=== PATIENT | male | born 1995 | race Caucasian/White ===

== ENCOUNTER 2017-01-20 13:29 | Emergency (ER) | payer BC ==
[2017-01-20] MEDS ORDERED: Sodium Chloride 0.9% 1000 ML 1,000 ML IV STA (14:14)
[2017-01-20] MEDS ORDERED: BENADRYL 50 MG/ML IV ONE (14:14)
[2017-01-20] MEDS ORDERED: MORPHINE SULFATE 10 MG/ML IV ONE ×2 (14:14→14:43)
[2017-01-20] MEDS ORDERED: Sodium Chloride 0.9% 1000 ML 1,000 ML ONE (14:18)
[2017-01-20] MEDS ORDERED: MORPHINE SULFATE 10 MG/ML ONE ×2 (14:18→14:46)
[2017-01-20] MEDS ORDERED: BENADRYL 50 MG/ML ONE (14:18)
--- NOTE | 2017-01-20 14:19 | ERPHSYRPT ---
- History of Present Illness Time Seen by Provider: 01/20/17 14:11 Historian: patient, family () Patient Subjective Stated Complaint: pt states he began having right lower back pain that started at 0100. pt states pain radiates to right lower abdomen. Triage Nursing Assessment: pt pink, warm,,dry. tender in right lower quad. pt moaning. pt afebrile. Physician History: CC: right abd/flank pain Hx: 22 y/o patient of Dr Curry was at [employer] [place] [employer] and had sudden onset right flank and abdominal pain at 1PM today. He has cold sweats, nausea, urge to urinate but could not. No hematuria. No hx of kidney stone disease. Pain severe. Quality: sharpness, stabbing Severity of Pain-Max: severe Severity of Pain-Current: severe Allergies/Adverse Reactions: fluticasone propionate [From Advair Diskus] Allergy (Severe, Verified 01/20/17 14:09) Shortness of Breath phenytoin sodium [From Dilantin] Allergy (Severe, Verified 01/20/17 14:09) Rash phenytoin sodium extended [From Dilantin] Allergy (Severe, Verified 01/20/17 14: 09) Rash salmeterol xinafoate [From Advair Diskus] Allergy (Severe, Verified 01/20/17 14: 09) Shortness of Breath Home Medications: Cetirizine HCl [Zyrtec] 10 mg PO DAILY 01/20/17 [History] Ranitidine HCl [Zantac 75] 75 mg PO DAILY 01/20/17 [History] Hx Tetanus, Diphtheria Vaccination/Date Given: Yes (unknown) Hx Influenza Vaccination/Date Given: No Hx Pneumococcal Vaccination/Date Given: No Immunizations Up to Date: Yes - Review of Systems Constitutional: No Fever, No Chills Eyes: No Symptoms Ears, Nose, & Throat: No Symptoms Respiratory: No Cough, No Dyspnea Cardiac: No Chest Pain Abdominal/Gastrointestinal: Abdominal Pain, Nausea, No Vomiting, No Diarrhea Genitourinary Symptoms: Hesitancy (right flank), No Dysuria, No Testicle Pain Neurological: No Focal Weakness, No Headache, No Parasthesia All Other Systems: Reviewed and Negative - Past Medical History Pertinent Past Medical History: Yes Neurological History: Seizures Other Medical History: FEBRILE SEIZURE - Past Surgical History Past Surgical History: Yes Musculoskeletal: Orthopedic Surgery Other Surgical History: orthopedic - Social History Smoking Status: Former smoker How long have you smoked: 1 Exposure to second hand smoke: No Drug Use: none Patient Lives Alone: No - Nursing Vital Signs Nursing Vital Signs: Initial Vital Signs Temperature 97.6 F 01/20/17 14:03 Pulse Rate 73 01/20/17 14:03 Respiratory Rate 18 01/20/17 14:03 Blood Pressure 141/82 01/20/17 14:03 O2 Sat by Pulse Oximetry 100 01/20/17 14:03 Pain Scale Pain Intensity 5 - Physical Exam General Appearance: alert, other (uncomfortable appearing) Eye Exam: PERRL/EOMI Ears, Nose, Throat Exam: normal ENT inspection, moist mucous membranes Neck Exam: normal inspection, non-tender, supple Respiratory Exam: normal breath sounds, lungs clear Cardiovascular Exam: regular rate/rhythm Gastrointestinal/Abdomen Exam: soft, tenderness (severe right sided tenderness) , No hernia Male Genitalia Exam: normal genitalia, No testicular tenderness Back Exam: normal inspection, CVA tenderness (right) Extremity Exam: normal inspection, normal range of motion Neurologic Exam: alert, oriented x 3, cooperative, sensation nml, No motor deficits Skin Exam: pale SpO2 Interpretation: normal SpO2: 100 Oxygen Delivery: Room Air - Course Nursing assessment & vital signs reviewed: Yes - CT Exams abd/pelvis CT Interpretation: Tele-radiologist Report (2X1mm right UVJ stone) Ordered Tests: Active Orders 24 hr Category Date Time Status Clean Catch Urine Specimen STAT Care 01/20/17 14:14 Active IV Insertion STAT Care 01/20/17 14:14 Active NPO (ED) STAT Care 01/20/17 14:14 Active ABDOMEN AND PELVIS W/0 CONTRAS [CT] Stat Exams 01/20/17 14:15 Taken CBC W DIFF Stat Lab 01/20/17 14:24 Completed CMP Stat Lab 01/20/17 14:24 Completed CULTURE,URINE Stat Lab 01/20/17 15:30 Received LIPASE Stat Lab 01/20/17 14:24 Completed UA W/ MICROSCOPIC Stat Lab 01/20/17 15:30 Completed Medication Summary Discontinued Medications Generic Name Dose Route Start Last Admin Trade Name Freq PRN Reason Stop Dose Admin Diphenhydramine HCl 50 mg 01/20/17 14:14 01/20/17 14:20 Benadryl 50 Mg/Ml IV 01/20/17 14:15 50 mg STAT ONE Administration Diphenhydramine HCl Confirm 01/20/17 14:18 Benadryl 50 Mg/Ml Administered 01/20/17 14:19 Dose 50 mg .ROUTE .STK-MED ONE Sodium Chloride 1,000 mls @ 999 mls/hr 01/20/17 14:14 01/20/17 14:19 Sodium Chloride 0.9% 1000 Ml IV 01/20/17 15:14 999 mls/hr .Q1H1M STA Administration Sodium Chloride Confirm 01/20/17 14:18 Sodium Chloride 0.9% 1000 Ml Administered 01/20/17 14:19 Dose 1,000 mls @ ud .ROUTE .STK-MED ONE Ketorolac Tromethamine 30 mg 01/20/17 15:22 01/20/17 15:30 Toradol 30 Mg Injection IV 01/20/17 15:23 30 mg STAT ONE Administration Ketorolac Tromethamine Confirm 01/20/17 15:29 Toradol 30 Mg Injection Administered 01/20/17 15:30 Dose 30 mg .ROUTE .STK-MED ONE Morphine Sulfate 10 mg 01/20/17 14:14 01/20/17 14:21 Morphine Sulfate 10 Mg/Ml IV 01/20/17 14:15 10 mg STAT ONE Administration Morphine Sulfate Confirm 01/20/17 14:18 Morphine Sulfate 10 Mg/Ml Administered 01/20/17 14:19 Dose 10 mg .ROUTE .STK-MED ONE Morphine Sulfate 5 mg 01/20/17 14:43 01/20/17 14:48 Morphine Sulfate 10 Mg/Ml IV 01/20/17 14:44 5 mg STAT ONE Administration Morphine Sulfate Confirm 01/20/17 14:46 Morphine Sulfate 10 Mg/Ml Administered 01/20/17 14:47 Dose 10 mg .ROUTE .STK-MED ONE Lab/Rad Data: Laboratory Result Diagrams 01/20/17 14:24 01/20/17 14:24 Laboratory Results 01/20/17 01/20/17 01/20/17 Range/Units 15:30 14:24 14:24 WBC 11.2 H (4.0-10.5) K/mm3 RBC 5.61 H (4.1-5.6) M/mm3 Hgb 16.1 (12.5-18.0) gm/dl Hct 46.6 (42-50) % MCV 83.1 (78-100) fl MCH 28.6 (26-32) pg MCHC 34.5 (32-36) g/dl RDW 12.5 (11.5-14.0) % Plt Count 291 (150-450) K/mm3 MPV 10.2 H (6-9.5) fl Gran % 66.7 H (36.0-66.0) % Lymphocytes % 25.6 (24.0-44.0) % Monocytes % 5.9 (0.0-12.0) % Eosinophils % 1.5 (0.00-5.0) % Basophils % 0.3 (0.0-0.4) % Basophils # 0.03 (0-0.4) Sodium 141 (136-145) mEq/L Potassium 3.2 L (3.5-5.1) mEq/L Chloride 104 (98-107) mEq/L Carbon Dioxide 24.1 (21-32) mEq/L Anion Gap 16.0 H (5-15) MEQ/L BUN 16 (9-20) mg/dL Creatinine 1.18 (0.55-1.30) mg/dl Estimated GFR > 60 ML/MIN Glucose 139 H (70-110) MG/DL Calcium 9.9 (8.5-10.1) mg/dL Total Bilirubin 0.60 (0.2-1.0) mg/dL AST 23 (15-37) U/L ALT 51 (12-78) U/L Alkaline Phosphatase 136 H (46-116) U/L Serum Total Protein 7.8 (6.4-8.2) gm/dL Albumin 4.4 (3.4-5.0) g/dL Lipase 189 (73-393) U/L Ur Collection Type VOID Urine Color YELLOW (YELLOW) Urine Appearance CLOUDY (CLEAR) Urine pH 7.0 (5-6) Ur Specific [place] 1.020 (1.005-1.025) Urine Protein NEGATIVE (Negative) Urine Ketones NEGATIVE (NEGATIVE) Urine Blood 250 (0-5) Henry/ul Urine Nitrite NEGATIVE (NEGATIVE) Urine Bilirubin NEGATIVE (NEGATIVE) Urine Urobilinogen NORMAL (0-1) mg/dL Ur Leukocyte Esterase TRACE (NEGATIVE) Urine Microscopic RBC >100 (0-2) /HPF Urine Microscopic WBC 0-2 (0-5) /HPF Ur Epithelial Cells FEW (FEW) /HPF Urine Bacteria RARE (NEGATIVE) /HPF Urine Mucus MODERATE (NEGATIVE) /HPF Urine Glucose NEGATIVE (NEGATIVE) mg/dL Specimen Received 01/20/17 1555 - Progress Progress Note: 01/20/17 14:[address] to evaluate for renal stone disease or appendicitis. 01/20/17 16:09 Improved symptoms. Will release with kidney stone instructions. Counseled pt/family regarding: lab results, diagnosis, need for follow-up, rad results - Departure Time of Disposition: 16:09 Departure Disposition: Home Clinical Impression: right UVJ stone, Renal colic on right side Condition: Stable Critical Care Time: No Referrals: JAC CURRY MD [Primary Care Provider] - Instructions: Kidney Stones Additional Instructions: Return for fever, uncontrolled pain, recurrent vomiting or concerns. Strain urine for stone to collect. No driving or operating machinery today or while taking norco. Call Dr Curry Sunday for follow up next week. Prescriptions: Hydrocodone/APAP 10/325 mg [[place] 10/325 MG Tablet] 1 tab PO Q6H PRN PRN # 15 tablet PRN Reason: Pain Ibuprofen 600 mg PO Q6H PRN PRN #24 tablet PRN Reason: Pain
[2017-01-20 14:36] LABS: BASOPHIL % 0.3 % (0.0-0.4); Eosinophil % 1.5 % (0.00-5.0); Granulocytes % 66.7 % (36.0-66.0); Lymphocytes % 25.6 % (24.0-44.0); Mean Cell Volume 83.1 fl (78-100); Mean Platelet Volume 10.2 fl (6-9.5); Monocytes % 5.9 % (0.0-12.0); Platelet Count 291 K/mm3 (150-450); Red Blood Count 5.61 M/mm3 (4.1-5.6); Red Cell Distribution Width 12.5 % (11.5-14.0); White Blood Count 11.2 K/mm3 (4.0-10.5)
[2017-01-20 14:37] LABS: Mean Corpuscular Hemoglobin 28.6 pg (26-32)
[2017-01-20 14:49] LABS: ALBUMIN 4.4 g/dL (3.4-5.0); ALKALINE PHOSPHATASE 136 U/L (46-116); BLOOD UREA NITROGEN 16 mg/dL (9-20); CHLORIDE 104 mEq/L (98-107); Carbon Dioxide 24.1 mEq/L (21-32); Glucose 139 MG/DL (70-110); LIPASE 189 U/L (73-393); Potassium 3.2 mEq/L (3.5-5.1); SGOT/AST 23 U/L (15-37); SGPT/ALT 51 U/L (12-78); SODIUM 141 mEq/L (136-145); Total Protein 7.8 gm/dL (6.4-8.2)
[2017-01-20] MEDS ORDERED: TORAdol 30 mg Injection IV ONE (15:22)
[2017-01-20] MEDS ORDERED: TORAdol 30 mg Injection ONE (15:29)
[2017-01-20 15:35] VITALS: BP 154/77; PULSE 82
[2017-01-20 15:57] LABS: Bilirubin NEGATIVE (NEGATIVE); Blood 250 Ery/ul (0-5); COMPLETE URINE MICROSCOPIC? YES; Collection Type VOID; Glucose NEGATIVE (NEGATIVE); Leukocyte Esterase TRACE (NEGATIVE)
[2017-01-20 15:58] LABS: ADD URINE CULTURE? YES (NO); Bacteria RARE /HPF (NEGATIVE); Epithelial Cells FEW /HPF (FEW); Mucus MODERATE /HPF (NEGATIVE); WBC 0-2 /HPF (0-5)
[2017-01-20 16:12] VITALS: O2SAT 100
--- NOTE | 2017-01-20 19:27 | XRAY ---
Indication: Right lower quadrant and right flank pain. Multiple contiguous axial images obtained through the abdomen and pelvis without contrast as ordered. Comparison: January 05, 2016. Lung bases clear. Heart is not enlarged. There is now a punctate right UVJ calculus. Proximal right ureter slightly prominent with mild hydronephrosis consistent with partial obstructive uropathy. Additional punctate right renal calculus. Noncontrasted stomach and bowel loops appear nonobstructed. Normal appendix. No free fluid/air. Again splenomegaly today measuring 13.3 cm in greatest axial dimension. Stable subcentimeter mesenteric nodes throughout, possible adenitis. No pathologic lymphadenopathy. Remaining liver, gallbladder, pancreas, adrenal glands, kidneys, ureters, bladder, and aorta appear unremarkable for noncontrast exam. Osseous structures intact. Impression: 1. Punctate right UVJ calculus producing partial obstruction. Additional right renal microcalculus. 2. Again scattered small mesenteric nodes, possible mesenteric adenitis. 3. Incidental splenomegaly. Comment: Preliminary interpretation was made by [facility]. No critical discrepancy. CTDI 23.24
== END 2017-01-20 16:25 | disposition home or self-care (01) ==
LOC: ED 13:29
DX: N20.1 Calculus of ureter (principal); N23 Unspecified renal colic
CPT/HCPCS: 36000; 36415; 74176; 80053; 81000; 83690; 85025; 87086; 96360; 96361; 96374; 96375; 96376; 99284; J1200; J1885; J2270

== ENCOUNTER 2021-04-04 09:07 | Emergency (ER) | payer OTHER ==
--- NOTE | 2021-04-04 09:41 | ERPHSYRPT ---
- History of Present Illness Time Seen by Provider: 04/04/21 09:25 Source: patient Exam Limitations: no limitations Patient Subjective Stated Complaint: PT states "It started last night, it feels like I have been kicked in the chest and then I had a friend take my blood pr essure at home and it was high." Triage Nursing Assessment: Pt presented alert and oriented X3, skin pwd pt ambulates with an extremely slow gait, holding onto his chest. Pt slightly tachypneic, able to speak in clear full setences. Physician History: Patient is a 26-year-old male presents to our ED with complaints of chest pain. Symptoms started last night. Patient states he feels like he was kicked in the chest. Mild shortness of breath. Symptoms continued on into today. Patient decided to come in for evaluation. Subjective fever last night. Patient currently afebrile. Slightly tachycardic. No nausea vomiting or diaphoresis. No diarrhea. No rash. Patient is otherwise healthy. Symptoms are mild to moderate in intensity. No specific worsening improving factors. Patient voices no other complaints or concerns at this time. Timing/Duration: yesterday Severity: moderate Modifying Factors: Improves With: nothing Associated Symptoms: other (Subjective fever.) Allergies/Adverse Reactions: fluticasone propionate [From Advair Diskus] Allergy (Severe, Verified 01/20/17 14:09) Shortness of Breath phenytoin sodium [From Dilantin] Allergy (Severe, Verified 01/20/17 14:09) Rash phenytoin sodium extended [From Dilantin] Allergy (Severe, Verified 01/20/17 14:09) Rash salmeterol xinafoate [From Advair Diskus] Allergy (Severe, Verified 01/20/17 14:09) Shortness of Breath Home Medications: Loratadine 10 mg [Claritin 10 mg] 10 mg PO DAILY 04/04/21 [History] Hx Tetanus, Diphtheria Vaccination/Date Given: No Hx Influenza Vaccination/Date Given: No Hx Pneumococcal Vaccination/Date Given: No Immunizations Up to Date: Yes Travel Risk - International Travel Have you traveled outside of the country in past 3 weeks: No - Coronavirus Screening Are you exhibiting any of the following symptoms?: No Close contact with a COVID-19 positive Pt in past 14-21 Days: No - Vaccine Status Have you recieved a Covid-19 vaccination: No - Review of Systems Constitutional: No Symptoms, No Fever, No Chills Eyes: No Symptoms Ears, Nose, & Throat: No Symptoms Respiratory: No Symptoms, No Cough, No Dyspnea Cardiac: No Symptoms, No Chest Pain, No Edema, No Syncope Abdominal/Gastrointestinal: No Symptoms, No Abdominal Pain, No Nausea, No Vomiti ng, No Diarrhea Genitourinary Symptoms: No Symptoms, No Dysuria Musculoskeletal: No Symptoms, No Back Pain, No Neck Pain Skin: No Symptoms, No Rash Neurological: No Symptoms, No Dizziness, No Focal Weakness, No Sensory Changes Psychological: No Symptoms Endocrine: No Symptoms Hematologic/Lymphatic: No Symptoms Immunological/Allergic: No Symptoms All Other Systems: Reviewed and Negative - Past Medical History Pertinent Past Medical History: Yes Neurological History: Seizures Other Medical History: FEBRILE SEIZURE - Past Surgical History Past Surgical History: Yes Musculoskeletal: Orthopedic Surgery Other Surgical History: orthopedic - Social History Smoking Status: Former smoker How long have you smoked: 1 Exposure to second hand smoke: Yes Drug Use: none Patient Lives Alone: No - Nursing Vital Signs Nursing Vital Signs: Initial Vital Signs Temperature 98.7 F 04/04/21 09:18 Pulse Rate 107 H 04/04/21 09:18 Respiratory Rate 22 04/04/21 09:18 Blood Pressure 128/91 04/04/21 09:18 O2 Sat by Pulse Oximetry 98 04/04/21 09:18 Pain Scale Pain Intensity 8 - Physical Exam General Appearance: no apparent distress, alert Eye Exam: PERRL/EOMI, eyes nml inspection Ears, Nose, Throat Exam: normal ENT inspection, TMs normal, pharynx normal, moist mucous membranes Neck Exam: normal inspection, non-tender, supple, full range of motion Respiratory Exam: normal breath sounds, lungs clear, airway intact, No chest tenderness, No respiratory distress Cardiovascular Exam: regular rate/rhythm, normal heart sounds, normal peripheral pulses Gastrointestinal/Abdomen Exam: soft, normal bowel sounds, No tenderness, No mass Back Exam: normal inspection, normal range of motion, No CVA tenderness, No vertebral tenderness Extremity Exam: normal inspection, normal range of motion, pelvis stable Neurologic Exam: alert, oriented x 3, cooperative, normal mood/affect, nml cerebellar function, nml station & gait, sensation nml, No motor deficits Skin Exam: normal color, warm, dry, No rash Lymphatic Exam: No adenopathy SpO2 Interpretation: normal SpO2: 98 O2 Delivery: Room Air - Course Nursing assessment & vital signs reviewed: Yes EKG Interpreted by Me: RATE (103), Sinus Rhythm, Sinus Tach, NORMAL AXIS, NORMAL INTERVALS - Radiology Exams Chest X-ray Interpretation: Teleradiologist Report (Chest remains clear. Heart not enlarged. Bony thorax intact again with minimal scoliosis. No new acute findings.) - CT Exams Chest CT Interpretation: Tele-radiologist Report (Negative for PE. Lungs demonstrate minimal patchy airspace disease in the superior segment of the left lower lobe. Remaining lungs are clear. Bony thorax intact. Limited upper abdomen unremarkable.) Ordered Tests: Active Orders 24 hr Category Date Time Status Marble Cleaner STAT Care 04/04/21 09:33 Active EKG-ER Only STAT Care 04/04/21 09:32 Active IV Insertion STAT Care 04/04/21 09:32 Active Pulse Oximetry (ED) STAT Care 04/04/21 09:32 Active CHEST 1 VIEW (PORTABLE) Stat Exams 04/04/21 09:33 Completed CHEST WITH CONTRAST [CT] Stat Exams 04/04/21 10:45 Completed CBC W DIFF Stat Lab 04/04/21 09:32 Completed CMP Stat Lab 04/04/21 09:20 Completed D-DIMER QUANTITATIVE Stat Lab 04/04/21 09:20 Completed INFLUENZA A+B DEEP Stat Lab 04/04/21 09:50 Completed UA W/RFX UR CULTURE Stat Lab 04/04/21 10:29 Completed Medication Summary Generic Name Dose Route Start Last Admin Trade Name Freq PRN Reason Stop Dose Admin Sodium Chloride 1,000 mls @ 100 mls/hr 04/04/21 09:45 04/04/21 09:57 Sodium Chloride 0.9% 1000 Ml IV 05/04/21 09:44 100 mls/hr .Q10H KRISTA Administration Discontinued Medications Generic Name Dose Route Start Last Admin Trade Name Freq PRN Reason Stop Dose Admin Ceftriaxone Sodium/Dextrose 2 g in 50 mls @ 100 mls/hr 04/04/21 11:32 04/04/21 12:48 Rocephin 2 Gm-D5w 50ml Bag IV 04/04/21 12:01 Infused STAT STA Infusion Azithromycin 500 mg in 250 mls @ 250 mls/hr 04/04/21 11:32 04/04/21 12:49 Zithromax 500 Mg/ 250 Ml Nacl Premix IV 04/04/21 12:31 Infused STAT STA Infusion Azithromycin Confirm 04/04/21 11:35 Zithromax 500 Mg/ 250 Ml Nacl Premix Administered 04/04/21 11:36 Dose 500 mg in 250 mls @ ud IV .STK-MED ONE Ceftriaxone Sodium/Dextrose Confirm 04/04/21 11:35 Rocephin 2 Gm-D5w 50ml Bag Administered 04/04/21 11:36 Dose 2 g in 50 mls @ ud IV .STK-MED ONE Lab/Rad Data: Laboratory Result Diagrams 04/04/21 09:32 04/04/21 09:20 Laboratory Results 04/04/21 04/04/21 04/04/21 Range/Units 10:29 09:50 09:32 WBC 6.4 (4.0-10.5) K/mm3 RBC 5.74 H (4.1-5.6) M/mm3 Hgb 16.2 (12.5-18.0) gm/dl Hct 48.1 (42-50) % MCV 83.8 (78-100) fl MCH 28.2 (26-32) pg MCHC 33.7 (32-36) g/dl RDW 12.6 (11.5-14.0) % Plt Count 253 (150-450) K/mm3 MPV 10.3 (7.5-11.0) fl Gran % 62.0 (36.0-66.0) % Eos # (Auto) 0.02 (0-0.5) Absolute Lymphs (auto) 1.35 (1.0-4.6) Absolute Monos (auto) 1.04 (0.0-1.3) Lymphocytes % 21.1 L (24.0-44.0) % Monocytes % 16.3 H (0.0-12.0) % Eosinophils % 0.3 (0.00-5.0) % Basophils % 0.3 (0.0-0.4) % Absolute Granulocytes 3.97 (1.4-6.9) Basophils # 0.02 (0-0.4) D-Dimer (215-500) ng/mL Sodium (137-145) mmol/L Potassium (3.5-5.1) mmol/L Chloride (98-107) mmol/L Carbon Dioxide (22-30) mmol/L Anion Gap (5-15) MEQ/L BUN (9-20) mg/dL Creatinine (0.66-1.25) mg/dL Estimated GFR ML/MIN Glucose (74-106) mg/dL Calcium (8.4-10.2) mg/dL Total Bilirubin (0.2-1.3) mg/dL AST (17-59) U/L ALT (0-50) U/L Alkaline Phosphatase (38-126) U/L Serum Total Protein (6.3-8.2) g/dL Albumin (3.5-5.0) g/dL Urine Color YELLOW (YELLOW) Urine Appearance CLEAR (CLEAR) Urine pH 6.0 (5-6) Ur Specific [place] 1.028 (1.005-1.025) Urine Protein NEGATIVE (Negative) Urine Ketones NEGATIVE (NEGATIVE) Urine Blood NEGATIVE (0-5) Henry/ul Urine Nitrite NEGATIVE (NEGATIVE) Urine Bilirubin NEGATIVE (NEGATIVE) Urine Urobilinogen NEGATIVE (0-1) mg/dL Ur Leukocyte Esterase NEGATIVE (NEGATIVE) Urine WBC (Auto) NONE (0-5) /HPF Urine RBC (Auto) NONE (0-2) /HPF U Epithel Cells (Auto) NONE (FEW) /HPF Urine Bacteria (Auto) NONE (NEGATIVE) /HPF Urine Mucus (Auto) SLIGHT (NEGATIVE) /HPF Urine Culture Reflexed NO (NO) Urine Glucose NEGATIVE (NEGATIVE) mg/dL Influenza Type A Ag NEGATIVE (NEGATIVE) Influenza Type B Ag NEGATIVE (NEGATIVE) 04/04/21 04/04/21 Range/Units 09:20 09:20 WBC (4.0-10.5) K/mm3 RBC (4.1-5.6) M/mm3 Hgb (12.5-18.0) gm/dl Hct (42-50) % MCV (78-100) fl MCH (26-32) pg MCHC (32-36) g/dl RDW (11.5-14.0) % Plt Count (150-450) K/mm3 MPV (7.5-11.0) fl Gran % (36.0-66.0) % Eos # (Auto) (0-0.5) Absolute Lymphs (auto) (1.0-4.6) Absolute Monos (auto) (0.0-1.3) Lymphocytes % (24.0-44.0) % Monocytes % (0.0-12.0) % Eosinophils % (0.00-5.0) % Basophils % (0.0-0.4) % Absolute Granulocytes (1.4-6.9) Basophils # (0-0.4) D-Dimer 552 H* (215-500) ng/mL Sodium 140 (137-145) mmol/L Potassium 4.0 (3.5-5.1) mmol/L Chloride 106 (98-107) mmol/L Carbon Dioxide 22 (22-30) mmol/L Anion Gap 17.1 H (5-15) MEQ/L BUN 10 (9-20) mg/dL Creatinine 0.78 (0.66-1.25) mg/dL Estimated GFR > 60.0 ML/MIN Glucose 101 (74-106) mg/dL Calcium 9.6 (8.4-10.2) mg/dL Total Bilirubin 0.50 (0.2-1.3) mg/dL AST 25 (17-59) U/L ALT 31 (0-50) U/L Alkaline Phosphatase 109 (38-126) U/L Serum Total Protein 7.2 (6.3-8.2) g/dL Albumin 4.6 (3.5-5.0) g/dL Urine Color (YELLOW) Urine Appearance (CLEAR) Urine pH (5-6) Ur Specific [place] (1.005-1.025) Urine Protein (Negative) Urine Ketones (NEGATIVE) Urine Blood (0-5) Henry/ul Urine Nitrite (NEGATIVE) Urine Bilirubin (NEGATIVE) Urine Urobilinogen (0-1) mg/dL Ur Leukocyte Esterase (NEGATIVE) Urine WBC (Auto) (0-5) /HPF Urine RBC (Auto) (0-2) /HPF U Epithel Cells (Auto) (FEW) /HPF Urine Bacteria (Auto) (NEGATIVE) /HPF Urine Mucus (Auto) (NEGATIVE) /HPF Urine Culture Reflexed (NO) Urine Glucose (NEGATIVE) mg/dL Influenza Type A Ag (NEGATIVE) Influenza Type B Ag (NEGATIVE) - Progress Progress: improved Progress Note: Patient reassessed. He feels well. No active chest pain. D-dimer positive. CTA chest negative for PE. However there was an incidental pulmonary infiltrate observed consistent with pneumonia. Patient received azithromycin and Rocephin in our ED. A prescription for Z-Hero was forwarded to patient's pharmacy. Patient's vitals are stable. No leukocytosis. Patient is afebrile. Plan of care discussed with patient. He agrees to follow-up with primary care doctor within 48 hours for reevaluation. 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 Portions of this note were created with voice recognition technology. There may be grammatical, spelling, punctuation or sound alike errors 04/04/21 12:58 Counseled pt/family regarding: lab results, diagnosis, need for follow-up, rad results - Departure Departure Disposition: Home Clinical Impression: Scoliosis, Pneumonia Condition: Stable Critical Care Time: No Referrals: TAYLOR VALVERDE MD [Primary Care Provider] - Follow up/PCP as directed Additional Instructions: Discharge/Care Plan SPEEDY HILL was seen on 04/04/21 in the Emergency Room. The patient was counseled regarding Diagnosis,Lab results, Imaging studies, need for follow up and when to return to the Emergency Room. Prescriptions given: Discharge Note I have spoken with the patient and/or caregivers. I have explained the patient's condition, diagnosis and treatment plan based on the information available to me at this time. I have answered the patient's and/or caregiver's questions and addressed any concerns. The patient and/or caregivers have as good understanding of the patient's diagnosis, condition and treatment plan as can be expected at this point. The vital signs have been stable. The patient's condition is stable and appropriate for discharge from the emergency department. The patient will pursue further outpatient evaluation with the primary care physician or other designated or consulting physician as outlined in the discharge instructions. The patient and/or caregivers are agreeable to this plan of care and follow-up instructions have been explained in detail. The patient and/or caregivers have received these instruction. The patient/and or caregivers are aware that any significant change in condition or worsening of symptoms should prompt an immediate return to this or the closest emergency department or call 911. Prescriptions: Azithromycin 250 mg [Zithromax 250 MG TABLET] 250 mg PO ZPACK #6 tablet
[2021-04-04] MEDS ORDERED: Sodium Chloride 0.9% 1000 ML 1,000 ML IV SCH (09:45)
[2021-04-04] MEDS ORDERED: Sodium Chloride 0.9% 1000 ML 1,000 ML ONE (09:51)
[2021-04-04 09:59] LABS: Absolute Neutrophil Ct (ANC) 3.97 (1.4-6.9); BASOPHIL % 0.3 % (0.0-0.4); Basophil (Absolute #) 0.02 (0-0.4); Eosinophil % 0.3 % (0.00-5.0); Eosinophil (Absolute #) 0.02 (0-0.5); Hematocrit 48.1 % (42-50); Hemoglobin 16.2 gm/dl (12.5-18.0); Lymphocyte (Absolute #) 1.35 (1.0-4.6); Lymphocytes % 21.1 % (24.0-44.0); Mean Cell Volume 83.8 fl (78-100); Mean Corpuscular Hemoglobin 28.2 pg (26-32); Mean Corpuscular Hgb Concent. 33.7 g/dl (32-36); Mean Platelet Volume 10.3 fl (7.5-11.0); Monocyte (Absolute #) 1.04 (0.0-1.3); Monocytes % 16.3 % (0.0-12.0); Platelet Count 253 K/mm3 (150-450); Red Blood Count 5.74 M/mm3 (4.1-5.6); Red Cell Distribution Width 12.6 % (11.5-14.0); White Blood Count 6.4 K/mm3 (4.0-10.5)
--- NOTE | 2021-04-04 10:00 | XRAY ---
Indication: Chest pain. High blood pressure. Comparison: November 30, 2014. Portable chest less inflated and remains clear. Heart not enlarged. Bony thorax intact again with minimal scoliosis. No new/acute findings.
[2021-04-04 10:15] LABS: ALBUMIN 4.6 g/dL (3.5-5.0); ALKALINE PHOSPHATASE 109 U/L (38-126); ANION GAP 17.1 MEQ/L (5-15); BLOOD UREA NITROGEN 10 mg/dL (9-20); CHLORIDE 106 mmol/L (98-107); Calcium 9.6 mg/dL (8.4-10.2); Carbon Dioxide 22 mmol/L (22-30); Creatinine 1 0.78 mg/dL (0.66-1.25); EST GLOMERULAR FILTRATION RATE > 60.0 ML/MIN; Glucose 101 mg/dL (74-106); SGOT/AST 25 U/L (17-59); SGPT/ALT 31 U/L (0-50); SODIUM 140 mmol/L (137-145); Total Protein 7.2 g/dL (6.3-8.2)
[2021-04-04 10:29] LABS: INFLUENZA A NEGATIVE (NEGATIVE); INFLUENZA B NEGATIVE (NEGATIVE)
--- NOTE | 2021-04-04 11:23 | XRAY ---
Indication: Chest pain, short of breath, and elevated d-dimer. High blood pressure. Multiple contiguous axial images obtained through the chest using 100 cc Isovue 370 contrast and PE protocol. Comparison: None Good opacification of the pulmonary arteries to include the lobar and segmental branches. No pulmonary embolus. Heart not enlarged. Aorta is normal in course and caliber. No pathologic mediastinal/hilar lymphadenopathy. Lungs demonstrate minimal patchy airspace disease in the superior segment of the left lower lobe. Remaining lungs are clear. Bony thorax intact. Limited upper abdomen unremarkable. Impression: 1. Negative pulmonary embolus. 2. Minimal left lower lobe patchy airspace disease.
[2021-04-04] MEDS ORDERED: ROCEPHIN 2 Gm-D5w 50ML BAG** 2 G/50 ML IVPB IV STA (11:32)
[2021-04-04] MEDS ORDERED: Zithromax 500 MG/ 250 ML NaCl Premix 500 MG/250 ML IVPB IV STA (11:32)
[2021-04-04] MEDS ORDERED: Zithromax 500 MG/ 250 ML NaCl Premix 500 MG/250 ML IVPB IV ONE (11:35)
[2021-04-04] MEDS ORDERED: ROCEPHIN 2 Gm-D5w 50ML BAG** 2 G/50 ML IVPB IV ONE (11:35)
[2021-04-04 11:45] LABS: Appearance CLEAR (CLEAR); Bilirubin NEGATIVE (NEGATIVE); Blood NEGATIVE Ery/ul (0-5); Glucose NEGATIVE (NEGATIVE); Ketones NEGATIVE (NEGATIVE); Leukocyte Esterase NEGATIVE (NEGATIVE); Mucus SLIGHT /HPF (NEGATIVE); Nitrite NEGATIVE (NEGATIVE); Protein,Urine Dip NEGATIVE (Negative); Specific Gravity 1.028 (1.005-1.025); Urobilinogen NEGATIVE mg/dL (0-1)
== END 2021-04-04 13:10 | disposition home or self-care (01) ==
LOC: ED 09:07
DX: J18.9 Pneumonia, unspecified organism (principal); Z87.891 Personal history of nicotine dependence; M41.9 Scoliosis, unspecified; R00.0 Tachycardia, unspecified; R06.02 Shortness of breath
CPT/HCPCS: 36000; 36415; 71045; 71260; 80053; 81001; 85025; 85379; 87400; 93005; 93041; 94760; 96365; 96374; 99284; U0003; J0456; J0696

== ENCOUNTER 2021-04-06 23:21 | Emergency (ER) | payer OTHER ==
[2021-04-06] MEDS ORDERED: DECADRON 10MG INJ. IV ONE (23:43)
[2021-04-07] MEDS ORDERED: DECADRON 10MG INJ. ONE (00:12)
--- NOTE | 2021-04-07 00:15 | ERPHSYRPT ---
- History of Present Illness Time Seen by Provider: 04/06/21 23:23 Source: patient Exam Limitations: no limitations Patient Subjective Stated Complaint: pt states he was swabbed for covid on 04/04/2021 and got his positive result today. pt states he has not been able to take a deep breath. states his checked his o2 sat while he was laying down at home and his o2 sat was 90%. states his sats moving around his sats are 95 Triage Nursing Assessment: pt alert and oriented, answers questions approp. pt back per wheelchair and ambulates to bed per self with steady gait noted. skin pink warm and dry. respirations nonlabored with lungs cta. o2 sat 96-97% on room air. Physician History: 26-year-old unvaccinated against COVID-19 presented in the ER with cough congestion symptoms for the last 5 days. Patient was evaluated in the ER 2 days ago with negative CTA and was given prescription of Z-Hero and today his COVID-19 came back positive. Patient reports earlier he was sleeping and his checked his pulse ox which was reading 90%. While ambulating in the ER on arrival patient oxygen saturation is around 95% and with lying down its around 97%. Patient reports having low-grade fever with chills and myalgia and minimal productive cough with generalized chest soreness and it hurts to take a deep breath. Is taking Tylenol for symptomatic relief which does help with the fever and chest discomfort. Timing/Duration: day(s) (5), constant, gradual onset, worse Activities at Onset: activity, rest Severity of Dyspnea-Max: moderate Severity of Dyspnea-Current: moderate Possible Cause: illness exposure Modifying Factors: Improves With: rest. Worsens With: activity, coughing, deep breath Associated Symptoms: anxiety, cough, chest pain/discomfort, fever, tightness, No productive cough Allergies/Adverse Reactions: fluticasone propionate [From Advair Diskus] Allergy (Severe, Verified 01/20/17 14:09) Shortness of Breath phenytoin sodium [From Dilantin] Allergy (Severe, Verified 01/20/17 14:09) Rash phenytoin sodium extended [From Dilantin] Allergy (Severe, Verified 01/20/17 14:09) Rash salmeterol xinafoate [From Advair Diskus] Allergy (Severe, Verified 01/20/17 14:09) Shortness of Breath Home Medications: Loratadine 10 mg [Claritin 10 mg] 10 mg PO DAILY 04/04/21 [History] Hx Tetanus, Diphtheria Vaccination/Date Given: Yes (unknown) Hx Influenza Vaccination/Date Given: No Hx Pneumococcal Vaccination/Date Given: No Immunizations Up to Date: Yes Travel Risk - International Travel Have you traveled outside of the country in past 3 weeks: No - Coronavirus Screening Are you exhibiting any of the following symptoms?: Yes Symptoms: Fever, Cough: New Onset, Shortness of Breath Close contact with a COVID-19 positive Pt in past 14-21 Days: Yes - Vaccine Status Have you recieved a Covid-19 vaccination: No - Review of Systems Constitutional: Fever, Chills, Fatigue, Weakness Eyes: No Symptoms Ears, Nose, & Throat: Nose Congestion Respiratory: Cough, Dyspnea, Dyspnea on Exertion (MÉNDEZ), Wheezing Cardiac: Chest Pain Abdominal/Gastrointestinal: No Symptoms Genitourinary Symptoms: No Symptoms Musculoskeletal: Myalgias Neurological: No Symptoms Psychological: No Symptoms Endocrine: No Symptoms Hematologic/Lymphatic: No Symptoms Immunological/Allergic: No Symptoms - Past Medical History Pertinent Past Medical History: Yes Neurological History: Seizures Respiratory History: Asthma Other Medical History: FEBRILE SEIZURE - Past Surgical History Past Surgical History: Yes Musculoskeletal: Orthopedic Surgery Other Surgical History: orthopedic - Social History Smoking Status: Former smoker How long have you smoked: 1 Exposure to second hand smoke: No Drug Use: none Patient Lives Alone: No - Nursing Vital Signs Nursing Vital Signs: Initial Vital Signs Temperature 98.1 F 04/06/21 23:48 Pulse Rate 102 H 04/06/21 23:48 Respiratory Rate 20 04/06/21 23:48 Blood Pressure 136/85 04/06/21 23:48 O2 Sat by Pulse Oximetry 97 04/06/21 23:48 Pain Scale Pain Intensity 0 - Physical Exam General Appearance: no apparent distress, alert, anxiety Eye Exam: PERRL/EOMI, eyes nml inspection Ears, Nose, Throat Exam: hearing grossly normal, nasal congestion, pharyngeal erythema Neck Exam: normal inspection, non-tender, supple, full range of motion Respiratory Exam: wheezing, No chest tenderness, No respiratory distress Cardiovascular/Chest Exam: normal heart sounds, regular rate/rhythm Abdominal/Gastrointestinal Exam: soft, normal bowel sounds, tenderness Extremity Exam: non-tender, normal range of motion Neurologic Exam: alert, oriented x 3, cooperative, 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, No normal mood/affect (Anxious) Skin Exam: normal color SpO2 Interpretation: normal SpO2: 97 O2 Delivery: Room Air - Course EKG Interpreted by Me: RATE (100), Sinus Rhythm, NORMAL AXIS, NORMAL INTERVALS, NORMAL QRS Ordered Tests: Medication Summary Discontinued Medications Generic Name Dose Route Start Last Admin Trade Name Tani PRN Reason Stop Dose Admin Dexamethasone Sodium Phosphate 6 mg 04/06/21 23:43 04/07/21 00:14 Dexamethasone Sod Phosphate 10 Mg/Ml IV 04/06/21 23:44 6 mg STAT ONE Administration Dexamethasone Sodium Phosphate Confirm 04/07/21 00:12 Dexamethasone Sod Phosphate 10 Mg/Ml Administered 04/07/21 00:13 Dose 10 mg .ROUTE .STK-MED ONE Lab/Rad Data: Laboratory Result Diagrams 04/06/21 23:59 04/06/21 23:59 Laboratory Results 04/07/21 04/06/21 04/06/21 Range/Units 00:07 23:59 23:59 WBC (4.0-10.5) K/mm3 RBC (4.1-5.6) M/mm3 Hgb (12.5-18.0) gm/dl Hct (42-50) % MCV (78-100) fl MCH (26-32) pg MCHC (32-36) g/dl RDW (11.5-14.0) % Plt Count (150-450) K/mm3 MPV (7.5-11.0) fl Gran % (36.0-66.0) % Eos # (Auto) (0-0.5) Absolute Lymphs (auto) (1.0-4.6) Absolute Monos (auto) (0.0-1.3) Lymphocytes % (24.0-44.0) % Monocytes % (0.0-12.0) % Eosinophils % (0.00-5.0) % Basophils % (0.0-0.4) % Absolute Granulocytes (1.4-6.9) Basophils # (0-0.4) Sodium 137 (137-145) mmol/L Potassium 3.4 L (3.5-5.1) mmol/L Chloride 104 (98-107) mmol/L Carbon Dioxide 21 L (22-30) mmol/L Anion Gap 16.1 H (5-15) MEQ/L BUN 12 (9-20) mg/dL Creatinine 0.71 (0.66-1.25) mg/dL Estimated GFR > 60.0 ML/MIN Glucose 106 (74-106) mg/dL Lactic Acid 1.0 (0.4-2.0) Calcium 9.0 (8.4-10.2) mg/dL Total Bilirubin 0.40 (0.2-1.3) mg/dL AST 26 (17-59) U/L ALT 23 (0-50) U/L Alkaline Phosphatase 80 (38-126) U/L Troponin I < 0.012 (0.000-0.034) ng/mL NT-Pro-B Natriuret Pep 12.9 (0-450) pg/mL Serum Total Protein 7.0 (6.3-8.2) g/dL Albumin 4.1 (3.5-5.0) g/dL 04/06/21 Range/Units 23:59 WBC 5.8 (4.0-10.5) K/mm3 RBC 5.35 (4.1-5.6) M/mm3 Hgb 15.3 (12.5-18.0) gm/dl Hct 44.6 (42-50) % MCV 83.4 (78-100) fl MCH 28.6 (26-32) pg MCHC 34.3 (32-36) g/dl RDW 12.2 (11.5-14.0) % Plt Count 202 (150-450) K/mm3 MPV 10.1 (7.5-11.0) fl Gran % 61.4 (36.0-66.0) % Eos # (Auto) 0.16 (0-0.5) Absolute Lymphs (auto) 1.34 (1.0-4.6) Absolute Monos (auto) 0.72 (0.0-1.3) Lymphocytes % 23.1 L (24.0-44.0) % Monocytes % 12.4 H (0.0-12.0) % Eosinophils % 2.8 (0.00-5.0) % Basophils % 0.3 (0.0-0.4) % Absolute Granulocytes 3.57 (1.4-6.9) Basophils # 0.02 (0-0.4) Sodium (137-145) mmol/L Potassium (3.5-5.1) mmol/L Chloride (98-107) mmol/L Carbon Dioxide (22-30) mmol/L Anion Gap (5-15) MEQ/L BUN (9-20) mg/dL Creatinine (0.66-1.25) mg/dL Estimated GFR ML/MIN Glucose (74-106) mg/dL Lactic Acid (0.4-2.0) Calcium (8.4-10.2) mg/dL Total Bilirubin (0.2-1.3) mg/dL AST (17-59) U/L ALT (0-50) U/L Alkaline Phosphatase (38-126) U/L Troponin I (0.000-0.034) ng/mL NT-Pro-B Natriuret Pep (0-450) pg/mL Serum Total Protein (6.3-8.2) g/dL Albumin (3.5-5.0) g/dL - Progress Progress: improved, re-examined Air Movement: good Progress Note: 04/07/21 01:59 Is given steroids. Patient is maintaining oxygen saturation around 96% on room air. Chest x-ray is not much change from one done 2 days ago reviewed by me, official report is still pending. Grossly unremarkable lab work. Do not think patient needs CTA imaging again at the was done 2 days ago. Does not have significant shortness of breath and if he was more concerned about his oxygen dropping to 90% on lying down. It is quite possible he might have some element of sleep apnea and while sleeping his sats might be a little bit lower. Its been normal in here. Nontoxic appearance. We will continue with steroids to go home along with albuterol and outpatient follow-up recommended. Discussed signs symptoms of worsening needing return to ER which he seems understanding. Stable for discharge. Blood Culture(s) Obtained: Yes Counseled pt/family regarding: lab results, diagnosis, need for follow-up, rad results - Departure Departure Disposition: Home Clinical Impression: Pneumonia due to COVID-19 virus Condition: Stable Critical Care Time: No Referrals: TAYLOR VALVERDE MD [Primary Care Provider] - Follow Up with PCP/3 days Instructions: Pneumonia, Adult (DC), Cough, Adult (DC) Additional Instructions: Continue with antibiotics. Take Tylenol as needed for fever control. Follow-up with primary care for reevaluation. Return to ER for persistent high-grade fever, difficulty breathing or oxygen saturation dropping below 90%, chest pain are not worsening shortness of breath. Prescriptions: Dexamethasone [Decadron] 6 mg PO DAILY #5 tablet Albuterol 8 gm Mdi Hfa [Ventolin Hfa MDI] 8 gm IH Q4H #1 inh
[2021-04-07 01:03] LABS: ALBUMIN 4.1 g/dL (3.5-5.0); ALKALINE PHOSPHATASE 80 U/L (38-126); ANION GAP 16.1 MEQ/L (5-15); BLOOD UREA NITROGEN 12 mg/dL (9-20); CHLORIDE 104 mmol/L (98-107); Carbon Dioxide 21 mmol/L (22-30); Creatinine 1 0.71 mg/dL (0.66-1.25); EST GLOMERULAR FILTRATION RATE > 60.0 ML/MIN; Glucose 106 mg/dL (74-106); NT PRO BNP 12.9 pg/mL (0-450); Potassium 3.4 mmol/L (3.5-5.1); SGOT/AST 26 U/L (17-59); SGPT/ALT 23 U/L (0-50); SODIUM 137 mmol/L (137-145)
[2021-04-07 01:22] LABS: Absolute Neutrophil Ct (ANC) 3.57 (1.4-6.9); BASOPHIL % 0.3 % (0.0-0.4); Basophil (Absolute #) 0.02 (0-0.4); Eosinophil % 2.8 % (0.00-5.0); Eosinophil (Absolute #) 0.16 (0-0.5); Hematocrit 44.6 % (42-50); Hemoglobin 15.3 gm/dl (12.5-18.0); Lymphocyte (Absolute #) 1.34 (1.0-4.6); Lymphocytes % 23.1 % (24.0-44.0); Mean Cell Volume 83.4 fl (78-100); Mean Corpuscular Hemoglobin 28.6 pg (26-32); Mean Corpuscular Hgb Concent. 34.3 g/dl (32-36); Mean Platelet Volume 10.1 fl (7.5-11.0); Monocyte (Absolute #) 0.72 (0.0-1.3); Monocytes % 12.4 % (0.0-12.0); Neutrophil % 61.4 % (36.0-66.0); Platelet Count 202 K/mm3 (150-450); Red Blood Count 5.35 M/mm3 (4.1-5.6); Red Cell Distribution Width 12.2 % (11.5-14.0); White Blood Count 5.8 K/mm3 (4.0-10.5)
--- NOTE | 2021-04-07 09:01 | XRAY ---
Indication: Fever, cough, short of breath. Comparison: April 04, 2021. Portable chest again demonstrates normal heart and lungs. No new/acute abnormalities.
== END 2021-04-07 02:19 | disposition home or self-care (01) ==
LOC: ED 23:21
DX: U07.1 COVID-19 (principal); J12.82 Pneumonia due to coronavirus disease 2019; R07.9 Chest pain, unspecified; R53.1 Weakness
CPT/HCPCS: 36000; 36415; 71045; 80053; 83605; 83880; 84484; 85025; 87040; 93005; 96374; 99284; J1100

== ENCOUNTER 2023-01-30 12:32 | Emergency (ER) | payer OTHER ==
[2023-01-30 12:47] VITALS: TEMP 97
[2023-01-30] MEDS ORDERED: Sodium Chloride 0.9% 1000 ML 1,000 ML IV STA (13:03)
[2023-01-30] MEDS ORDERED: TORAdol 30 mg Injection IV ONE (13:03)
[2023-01-30] MEDS ORDERED: Sodium Chloride 0.9% 1000 ML 1,000 ML ONE (13:11)
[2023-01-30] MEDS ORDERED: TORAdol 30 mg Injection ONE (13:11)
[2023-01-30 13:15] LABS: Absolute Neutrophil Ct (ANC) 4.69 x10^3/uL (1.4-6.9); BASOPHIL % 0.7 % (0.0-0.4); Basophil (Absolute #) 0.05 x10^3/uL (0-0.4); Eosinophil % 2.7 % (0.00-5.0); Hematocrit 43.8 % (42-50); Hemoglobin 14.6 g/dL (12.5-18.0); IMMATURE GRAN # 0.04 x10^3u/L (0.00-0.03); IMMATURE GRAN % 0.5 % (0.00-0.4); Lymphocyte (Absolute #) 1.97 x10^3/uL (1.0-4.6); Lymphocytes % 26.1 % (24.0-44.0); Mean Cell Volume 86.6 fL (78-100); Mean Corpuscular Hemoglobin 28.9 pg (26-32); Mean Corpuscular Hgb Concent. 33.3 g/dL (32-36); Mean Platelet Volume 9.6 fL (7.5-11.0); Monocyte (Absolute #) 0.59 x10^3/uL (0.0-1.3); Monocytes % 7.8 % (0.0-12.0); Neutrophil % 62.2 % (36.0-66.0); Platelet Count 324 x10^3/uL (150-450); Red Blood Count 5.06 x10^6/uL (4.1-5.6); Red Cell Distribution Width 12.5 % (11.5-14.0); White Blood Count 7.5 x10^3/uL (4.0-10.5)
[2023-01-30 13:24] LABS: ALBUMIN 4.6 g/dL (3.5-5.0); ALKALINE PHOSPHATASE 151 U/L (38-126); ANION GAP 16.6 MEQ/L (5-15); BLOOD UREA NITROGEN 17 mg/dL (9-20); CHLORIDE 107 mmol/L (98-107); Calcium 8.9 mg/dL (8.4-10.2); Carbon Dioxide 23 mmol/L (22-30); Creatinine 1 0.88 mg/dL (0.66-1.25); EST GLOMERULAR FILTRATION RATE > 60.0 ML/MIN; Glucose 121 mg/dL (74-106); SGOT/AST 29 U/L (17-59); SGPT/ALT 30 U/L (0-50); SODIUM 143 mmol/L (137-145); Total Protein 7.4 g/dL (6.3-8.2)
[2023-01-30] MEDS ORDERED: MORPHINE SULFATE 4 MG INJ IV ONE (13:42)
[2023-01-30] MEDS ORDERED: MORPHINE SULFATE 4 MG INJ ONE (13:44)
--- NOTE | 2023-01-30 14:00 | XRAY ---
Indication: Right lower quadrant pain. Multiple contiguous axial images obtained through the abdomen and pelvis without contrast. Comparison: January 20, 2017 Lung bases clear. Heart not enlarged. Noncontrasted stomach and bowel loops remain nonobstructed with normal appendix. No free fluid/air. There is again right UVJ punctate calculus. Proximal right ureter is slightly prominent along with mild hydronephrosis consistent with partial obstructive uropathy. No other renal calculus/calcification. Remaining liver, gallbladder, pancreas, spleen, adrenal glands, kidneys, ureters, bladder, and aorta are unremarkable for noncontrast exam. Osseous structures intact. Impression: Recurrent right UVJ punctate calculus producing partial obstruction.
--- NOTE | 2023-01-30 14:14 | XRAY ---
Indication: Right testicle pain. Two-dimensional testicular sonogram performed. Comparison: None Both testicles are homogeneous in echogenicity and demonstrate normal color perfusion. Right testicle measures 3.6 x 2.3 x 3.2 cm and the left measures 4.0 x 2.4 x 2.8 cm. Left and right epididymis are sonographically unremarkable. Incidental mild left-sided varicocele accentuated with Valsalva maneuvering. No suspicious extratesticular mass or large hydrocele. Impression: Left varicocele. Remaining testicular sonogram is negative.
--- NOTE | 2023-01-30 15:05 | ERPHSYRPT ---
- History of Present Illness Time Seen by Provider: 01/30/23 13:20 Source: patient Exam Limitations: no limitations Patient Subjective Stated Complaint: pt here for pain to right lower abd and into right testicle sudden onset about 2 hours ago with some nausea Triage Nursing Assessment: pt arrived to bent over, moaning in pain holding groin area , abd soft, no edema noted Physician History: Patient is a 28-year-old male presents to our ED for evaluation of acute onset right lower quadrant pain radiating to his right testicle. Patient has had a kidney stone in the past and states symptoms are similar. No trauma no fever. Symptoms started approximately 2 hours prior to arrival. Mild nausea at the onset of pain. No nausea at the time of my evaluation. Pain are constant. Symptoms are moderate in intensity. No specific worsening or improving factors. Patient voices no other complaints or concerns at this time. Timing/Duration: today Severity: moderate Modifying Factors: Improves With: nothing Associated Symptoms: denies symptoms Allergies/Adverse Reactions: fluticasone propionate [From Advair Diskus] Allergy (Severe, Verified 01/30/23 12:43) Shortness of Breath phenytoin sodium [From Dilantin] Allergy (Severe, Verified 01/30/23 12:43) Rash phenytoin sodium extended [From Dilantin] Allergy (Severe, Verified 01/30/23 12:43) Rash salmeterol xinafoate [From Advair Diskus] Allergy (Severe, Verified 01/30/23 12:43) Shortness of Breath Home Medications: Sertraline HCl 50 mg [Zoloft 50 mg Tablet] 50 mg PO DAILY 01/30/23 [History] gemfibroziL [Gemfibrozil] 1 ea DAILY 01/30/23 [History] Hx Tetanus, Diphtheria Vaccination/Date Given: Yes (unknown) Hx Influenza Vaccination/Date Given: No Hx Pneumococcal Vaccination/Date Given: No Immunizations Up to Date: Yes Travel Risk - International Travel Have you traveled outside of the country in past 3 weeks: No - Coronavirus Screening Are you exhibiting any of the following symptoms?: No Close contact with a COVID-19 positive Pt in past 14-21 Days: No - Vaccine Status Have you recieved a Covid-19 vaccination: No - Review of Systems Constitutional: No Symptoms, No Fever, No Chills Eyes: No Symptoms Ears, Nose, & Throat: No Symptoms Respiratory: No Symptoms, No Cough, No Dyspnea Cardiac: No Symptoms, No Chest Pain, No Edema, No Syncope Abdominal/Gastrointestinal: No Symptoms, No Abdominal Pain, No Nausea, No Vomiting, No Diarrhea Genitourinary Symptoms: No Symptoms, No Dysuria Musculoskeletal: No Symptoms, No Back Pain, No Neck Pain Skin: No Symptoms, No Rash Neurological: No Symptoms, No Dizziness, No Focal Weakness, No Sensory Changes Psychological: No Symptoms Endocrine: No Symptoms Hematologic/Lymphatic: No Symptoms All Other Systems: Reviewed and Negative - Past Medical History Pertinent Past Medical History: Yes Neurological History: Seizures Respiratory History: Asthma Other Medical History: FEBRILE SEIZURE,kidney stones - Past Surgical History Past Surgical History: Yes Musculoskeletal: Orthopedic Surgery Other Surgical History: orthopedic - Social History Smoking Status: Former smoker How long have you smoked: 1 Exposure to second hand smoke: No Drug Use: none Patient Lives Alone: No - Nursing Vital Signs Nursing Vital Signs: Initial Vital Signs Temperature 97.0 F 01/30/23 12:46 Pulse Rate 70 01/30/23 12:46 Respiratory Rate 18 01/30/23 12:46 Blood Pressure 130/90 01/30/23 12:46 O2 Sat by Pulse Oximetry 100 01/30/23 12:46 Pain Scale Pain Intensity 3 - Physical Exam General Appearance: no apparent distress, alert Eye Exam: PERRL/EOMI, eyes nml inspection Ears, Nose, Throat Exam: normal ENT inspection, TMs normal, pharynx normal, moist mucous membranes Neck Exam: normal inspection, non-tender, supple, full range of motion Respiratory Exam: normal breath sounds, lungs clear, No respiratory distress Cardiovascular Exam: regular rate/rhythm, normal heart sounds, normal peripheral pulses Gastrointestinal/Abdomen Exam: soft, normal bowel sounds, No tenderness, No mass Back Exam: normal inspection, normal range of motion, No CVA tenderness, No vertebral tenderness Extremity Exam: normal inspection, normal range of motion, pelvis stable Neurologic Exam: alert, oriented x 3, cooperative, normal mood/affect, nml cerebellar function, nml station & gait, sensation nml, No motor deficits Skin Exam: normal color, warm, dry, No rash Lymphatic Exam: No adenopathy SpO2 Interpretation: normal SpO2: 100 O2 Delivery: Room Air - Course Nursing assessment & vital signs reviewed: Yes - CT Exams Abdomen/Pelvis CT Interpretation: Tele-radiologist Report (Right UVJ punctate calculus, hydronephrosis obstructive uropathy) Ordered Tests: Active Orders 24 hr Category Date Time Status IV Insertion STAT Care 01/30/23 13:03 Active ABDOMEN AND PELVIS W/0 CONTRAS [CT] Stat Exams 01/30/23 13:03 Completed TESTICLE [US] Stat Exams 01/30/23 13:04 Completed CBC W DIFF Stat Lab 01/30/23 12:00 Completed CMP Stat Lab 01/30/23 12:00 Completed CULTURE,URINE Stat Lab 01/30/23 15:15 Received UA W/RFX UR CULTURE Stat Lab 01/30/23 15:15 Completed Medication Summary Discontinued Medications Generic Name Dose Route Start Last Admin Trade Name Freq PRN Reason Stop Dose Admin Sodium Chloride 1,000 mls @ 999 mls/hr 01/30/23 13:03 01/30/23 14:22 Sodium Chloride 0.9% 1000 Ml IV 01/30/23 14:03 Infused .Q1H1M STA Infusion Sodium Chloride Confirm 01/30/23 13:11 Sodium Chloride 0.9% 1000 Ml Administered 01/30/23 13:12 Dose 1,000 mls @ ud .ROUTE .STK-MED ONE Ketorolac Tromethamine 30 mg 01/30/23 13:03 01/30/23 13:12 Ketorolac Tromethamine 30 Mg/Ml Inj IV 01/30/23 13:04 30 mg STAT ONE Administration Ketorolac Tromethamine Confirm 01/30/23 13:11 Ketorolac Tromethamine 30 Mg/Ml Inj Administered 01/30/23 13:12 Dose 30 mg .ROUTE .STK-MED ONE Morphine Sulfate 4 mg 01/30/23 13:42 01/30/23 13:46 Morphine Sulfate 4 Mg/Ml Injection IV 01/30/23 13:43 4 mg STAT ONE Administration Morphine Sulfate Confirm 01/30/23 13:44 Morphine Sulfate 4 Mg/Ml Injection Administered 01/30/23 13:45 Dose 4 mg .ROUTE .STK-MED ONE Lab/Rad Data: Laboratory Result Diagrams 01/30/23 12:00 01/30/23 12:00 Laboratory Results 01/30/23 01/30/23 01/30/23 Range/Units 15:15 12:00 12:00 WBC 7.5 (4.0-10.5) x10^3/uL RBC 5.06 (4.1-5.6) x10^6/uL Hgb 14.6 (12.5-18.0) g/dL Hct 43.8 (42-50) % MCV 86.6 (78-100) fL MCH 28.9 (26-32) pg MCHC 33.3 (32-36) g/dL RDW 12.5 (11.5-14.0) % Plt Count 324 (150-450) x10^3/uL MPV 9.6 (7.5-11.0) fL Gran % 62.2 (36.0-66.0) % Immature Gran % (Auto) 0.5 H (0.00-0.4) % Nucleat RBC Rel Count 0.0 (0.00-0.1) % Eos # (Auto) 0.20 (0-0.5) x10^3/uL Immature Gran # (Auto) 0.04 H (0.00-0.03) x10^3u/L Absolute Lymphs (auto) 1.97 (1.0-4.6) x10^3/uL Absolute Monos (auto) 0.59 (0.0-1.3) x10^3/uL Absolute Nucleated RBC 0.00 (0.00-0.01) x10^3u/L Lymphocytes % 26.1 (24.0-44.0) % Monocytes % 7.8 (0.0-12.0) % Eosinophils % 2.7 (0.00-5.0) % Basophils % 0.7 (0.0-0.4) % Absolute Granulocytes 4.69 (1.4-6.9) x10^3/uL Basophils # 0.05 (0-0.4) x10^3/uL Sodium 143 (137-145) mmol/L Potassium 4.0 (3.5-5.1) mmol/L Chloride 107 (98-107) mmol/L Carbon Dioxide 23 (22-30) mmol/L Anion Gap 16.6 H (5-15) MEQ/L BUN 17 (9-20) mg/dL Creatinine 0.88 (0.66-1.25) mg/dL Estimated GFR > 60.0 ML/MIN Glucose 121 H (74-106) mg/dL Calcium 8.9 (8.4-10.2) mg/dL Total Bilirubin 0.40 (0.2-1.3) mg/dL AST 29 (17-59) U/L ALT 30 (0-50) U/L Alkaline Phosphatase 151 H (38-126) U/L Serum Total Protein 7.4 (6.3-8.2) g/dL Albumin 4.6 (3.5-5.0) g/dL Urine Color Yellow (Yellow) Urine Appearance Clear (Clear) Urine pH 6.0 (4.6-8.0) Ur Specific Burna >=1.030 A (1.005-1.030) Urine Protein Trace A (Negative) Urine Glucose (UA) Negative (Negative) mg/dL Urine Ketones Negative (Negative) Urine Blood Moderate A (Negative) Urine Nitrite Negative (Negative) Urine Bilirubin Negative (Negative) Urine Urobilinogen 1.0 A (0.2) mg/dL Ur Leukocyte Esterase Negative (Negative) U Hyaline Cast (Auto) NONE SEEN (0-2) /LPF Urine Microscopic RBC 11-20 A (0-5) /HPF Urine Microscopic WBC 0-2 (0-5) /HPF Ur Epithelial Cells None Seen (None Seen) /HPF Urine Bacteria None Seen (None Seen) /HPF Urine Culture Reflexed YES (NO) - Progress Progress: improved Progress Note: 28-year-old male presents to our ED with right lower quadrant and testicular pain started approximately 2 hours prior to arrival. CT shows a small ureterolithiasis/struct of kidney stone with hydronephrosis. UA shows microscopic hematuria no infection. Testicular ultrasound done as patient complained of pain to his right testicle. Pain was likely referred. Ultrasound testicle negative for torsion. CBC CMP within normal limits. Patient received normal saline. Toradol administered for pain control. Patient required additional pain control received 4 mg of morphine. Patient currently pain-free. Will discharge home. Patient will follow-up with his family doctor within 48 hours. A urine strainer was provided. Flomax and Toradol prescription forwarded to patient's pharmacy. Patient will follow-up in 48 hours for reevaluation. at bedside. They voiced no other complaints or concerns at this time. We discussed the importance of maintenance of hydration. Decrease calcium/dairy intake. Patient states he has been training for marathon and has been dehydrated. Complexity of problem addressed is moderate acute complicated No critical care time Complexity data reviewed and analyzed is moderate. Test ordered for test reviewed. Clinical correlation made between test results/imaging results and history and physical examination. Risk complication and a risk morbidity/mortality patient management is moderate. A prescription for Toradol and Flomax forwarded to patient's pharmacy. Plan of care established for shared decision making. Vital stable. Time spent in discharge patient is approximately 20 minutes. No social determinants of health present to impede follow-up. Portions of this note were created with voice recognition technology. There may be grammatical, spelling, punctuation or sound alike errors 01/30/23 16:42 Counseled pt/family regarding: lab results, diagnosis, rad results - Departure Departure Disposition: Home Clinical Impression: Testicular varicocele, Ureterolithiasis, Hydronephrosis, Renal colic, Hematuria Condition: Stable Critical Care Time: No Referrals: GREGOR CALDERÓN MD [Primary Care Provider] - Follow up/PCP as directed FIDEL ALCALA [COURTESY STAFF] - Follow up/PCP as directed Additional Instructions: Discharge/Care Plan SPEEDY HILL was seen on 01/30/23 in the Emergency Room. The patient was counseled regarding Diagnosis,Lab results, Imaging studies, need for follow up and when to return to the Emergency Room. Prescriptions given: Discharge Note I have spoken with the patient and/or caregivers. I have explained the patient's condition, diagnosis and treatment plan based on the information available to me at this time. I have answered the patient's and/or caregiver's questions and addressed any concerns. The patient and/or caregivers have as good understanding of the patient's diagnosis, condition and treatment plan as can be expected at this point. The vital signs have been stable. The patient's condition is stable and appropriate for discharge from the emergency department. The patient will pursue further outpatient evaluation with the primary care physician or other designated or consulting physician as outlined in the discharge instructions. The patient and/or caregivers are agreeable to this plan of care and follow-up instructions have been explained in detail. The patient and/or caregivers have received these instruction. The patient/and or caregivers are aware that any significant change in condition or worsening of symptoms should prompt an immediate return to this or the closest emergency department or call 911. Prescriptions: Tamsulosin HCl 0.4 mg [Flomax 0.4 MG] 0.4 mg PO DAILY 14 Days #14 cap Ketorolac Trometh 10 mg Tab [TORAdol 10 MG TABLET] 10 mg PO TID 5 Days #15 tablet
[2023-01-30 16:01] LABS: Appearance Clear (Clear); Bacteria None Seen /HPF (None Seen); Bilirubin Negative (Negative); Blood Moderate (Negative); Epithelial Cells None Seen /HPF (None Seen); Glucose, Urine Negative (Negative); Hyaline Casts NONE SEEN /LPF (0-2); Ketones Negative (Negative); Leukocyte Esterase Negative (Negative); Nitrite Negative (Negative); Protein,Urine Dip Trace (Negative); Specific Gravity >=1.030 (1.005-1.030); WBC 0-2 /HPF (0-5)
[2023-01-30 16:02] LABS: ADD URINE CULTURE? YES (NO)
[2023-01-30 16:31] VITALS: BP 105/76; PULSE 76; RESP 12
[2023-01-30 16:38] VITALS: O2SAT 100
== END 2023-01-30 16:40 | disposition home or self-care (01) ==
LOC: ED 12:32
DX: N13.2 Hydronephrosis with renal and ureteral calculous obstruction (principal); I86.1 Scrotal varices; N23 Unspecified renal colic; R31.9 Hematuria, unspecified; R10.31 Right lower quadrant pain; Z79.899 Other long term (current) drug therapy; Z28.310 Unvaccinated for COVID-19; Z87.442 Personal history of urinary calculi
CPT/HCPCS: 36000; 36415; 74176; 76870; 80053; 81001; 85025; 87086; 96360; 96374; 96375; 99284; J1885; J2270